=== PATIENT | male | born 1940 | race Hispanic/Latino ===

== ENCOUNTER → 2020-11-26 | Outpatient (CLI) | payer OTHER ==
[2020-11-26 16:26] LABS: CALCIUM 9.1 mg/dL (8.4-10.5); CARBON DIOXIDE 22.1 mmol/L (20.0-32)
== END | disposition home or self-care (01) ==
LOC: NPLAB 16:03
PROVIDERS: ATTEND Internal Medicine
DX: L03.115 Cellulitis of right lower limb (principal)
CPT/HCPCS: 80053

== ENCOUNTER → 2021-01-28 | Outpatient (CLI) | payer OTHER | END | disposition home or self-care (01) | LOC: NPLAB 12:55 | PROVIDERS: ATTEND Internal Medicine | DX: L03.115 Cellulitis of right lower limb (principal) | CPT/HCPCS: 87070; 87077; 87186 ==